=== PATIENT | female | born 1950 | race Caucasian/White ===

== ENCOUNTER → 2017-02-25 | Outpatient (CLI) | payer MEDICARE, BC | LOC: MC.RAD 02-04 13:00 | DX: Z12.31 Encounter for screening mammogram for malignant neoplasm of breast (principal) ==

== ENCOUNTER → 2017-12-05 | Outpatient (CLI) | payer MEDICARE, BC | LOC: ZCOL.LAB 16:08 | DX: K11.5 Sialolithiasis (principal) ==

== ENCOUNTER 2021-12-23 06:41 | Day surgery (SDC) | payer MEDICARE, BC ==
[~2021-12-23] VITALS: Ht 165.1 cm; Wt 95.9 kg
[2021-12-23 07:45] VITALS: BP 129/60; PULSE 101; TEMP 98.2
[2021-12-23] MEDS ORDERED: CYMBALTA 30MG30 MG PO (07:51)
[2021-12-23] MEDS ORDERED: LOVAZA1 GM PO (07:52)
[2021-12-23] MEDS ORDERED: PRINZIDE 12.5 M1 TA1 PO (07:53)
[2021-12-23] MEDS ORDERED: TYLENOL 500MG500 MG PO (07:54)
[2021-12-23] MEDS ORDERED: ASPIRIN E.C. 8181 MG PO (07:55)
[2021-12-23] MEDS ORDERED: HUMULIN R500 UNIT/1 SQ (07:57)
[2021-12-23] MEDS ORDERED: OCUVITE EYE HE1 EACH PO (07:58)
[2021-12-23] MEDS ORDERED: NITROSTAT0.4 MG/TAB SL (07:59)
[2021-12-23] MEDS ORDERED: AFRIN 15 ML15 ML NS (08:00)
[2021-12-23] MEDS ORDERED: VITAMIN D31000 IU PO (08:01)
[2021-12-23 08:35] VITALS: BP 118/54; PULSE 97; TEMP 97.4
[2021-12-23 08:45] VITALS: BP 118/61; PULSE 106
[2021-12-23 09:00] VITALS: BP 129/52; PULSE 94
--- NOTE | 2021-12-23 09:25 | NUR ---
Pt returned via cart to [place] [facility] post procedure. A&O. Ambulated to recliner in bay. VS remain stable. Tolerated oral intake. Dr Ramírez in to visit post procedure. IV removed, pressure dressing applied. Pt dressed. DC teaching completed, pt verbalized understanding. Taken via wheelchair to private vehicle for dc home with brotherJoe to drive home.
== END 2021-12-23 09:25 | disposition home or self-care (01) ==
LOC: SDCO 06:41
DX: Z12.11 Encounter for screening for malignant neoplasm of colon (principal); K64.0 First degree hemorrhoids; K57.30 Diverticulosis of large intestine without perforation or abscess without bleeding; F17.210 Nicotine dependence, cigarettes, uncomplicated
CPT/HCPCS: J2704